=== PATIENT | male | born 1990 ===

== ENCOUNTER 2020-03-14 13:56 | Emergency (ER) | payer SELFPAY ==
[~2020-03-14] VITALS: Ht 177 cm; Wt 81.0 kg
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
[2020-03-14 14:15] LABS: HEMOGLOBIN 15.2 g/dL (13.3-17.7); MEAN PLATELET VOLUME 9.5 fL (9.0-12.2)
[2020-03-14] MEDS ORDERED: NS 100 ML (IVPB) BAG IV ONE (14:15)
[2020-03-14] MEDS ORDERED: HOLD METFORMIN - RECEIVED CONTRAST 20 ML VIAL IV SCH (14:15)
[2020-03-14] MEDS ORDERED: IOHEXOL 350 MG/ML 100 ML (OMNIPAQUE 350) VIAL IV ONE (14:15)
[2020-03-14 14:23] LABS: ALBUMIN 4.4 GM/DL (3.2-4.5); CHLORIDE 106 MMOL/L (98-107); POTASSIUM 3.5 MMOL/L (3.6-5.0); SODIUM 139 MMOL/L (135-145)
[2020-03-14 14:25] LABS: CALCIUM 8.8 MG/DL (8.5-10.1)
[2020-03-14 14:26] LABS: GLUCOSE 116 MG/DL (70-105); TOTAL PROTEIN 7.2 GM/DL (6.4-8.2)
[2020-03-14 14:27] LABS: CARBON DIOXIDE 22 MMOL/L (21-32)
[2020-03-14 14:28] LABS: BILIRUBIN,TOTAL 0.6 MG/DL (0.1-1.0)
[2020-03-14 14:29] LABS: ALKALINE PHOSPHATASE 71 U/L (40-136)
[2020-03-14 14:30] LABS: CREATININE SERUM 0.97 MG/DL (0.60-1.30); GFR ESTIMATED > 60
[2020-03-14 14:31] LABS: BILIRUBIN,DIRECT 0.2 MG/DL (0.0-0.3); BILIRUBIN,INDIRECT 0.4 MG/DL; BUN/CREATININE RATIO 19
[2020-03-14 14:32] LABS: ALANINE AMINOTRANSFERASE 22 U/L (0-55)
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
--- NOTE | 2020-03-14 14:47 | NUR ---
JULIANN HOUGH AT BEDSIDE W/ PT AT THIS TIME.
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
[2020-03-14] MEDS ORDERED: fentaNYL INJECTION 100 MCG/2 ML AMP IVP ONE ×2 (15:00)
[2020-03-14] MEDS ORDERED: AMOX500C2 PO (15:03)
[2020-03-14] MEDS ORDERED: HYDR-3870 PO (15:03)
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
[2020-03-14] MEDS ORDERED: ceFAZolin INJECTION 1,000 MG in WATER (STERILE) FOR INJECTION 10 ML IV ONE (15:15)
[2020-03-14] MEDS ORDERED: TETANUS,DIPTH,PERTUSS P/F (BOOSTRIX) 0.5 ML VIAL IM ONE (15:15)
--- NOTE | 2020-03-14 15:15 | NUR ---
KEON IN W/ PT AT THIS TIME.
--- NOTE | 2020-03-14 15:27 | NUR ---
PT BACK TO RADIOLOGY AT THIS TIME.
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
[2020-03-14 16:02] VITALS: BP 170/94
--- NOTE | 2020-03-14 16:02 | NUR ---
PT DISCHARGED TO HOME W/ RX ET INSTR. PT TO TAKE MEDS DIRECTED, F/U W/ PCP ET RETURN IF SYMPTOMS CHANGE OR GET WORSE. PT VOICED UNDERSTANDING. NO QUESTIONS.
== END 2020-03-14 16:02 | disposition home or self-care (01) ==
LOC: ER 13:59
DX: S02.2XXA Fracture of nasal bones, initial encounter for closed fracture (principal); S40.012A Contusion of left shoulder, initial encounter; S00.81XA Abrasion of other part of head, initial encounter; R40.2410 Glasgow coma scale score 13-15, unspecified time; Z23 Encounter for immunization; V89.2XXA Person injured in unspecified motor-vehicle accident, traffic, initial encounter
CPT/HCPCS: 70450; 71260; 72125; 73030; 73080; 74177; 80048; 80076; 85027; 86850; 86900; 86901; 93041; 99284; G0480; 36415; 80320; 90715